=== PATIENT | male | born 1945 | race Caucasian/White ===

== ENCOUNTER 2016-11-20 10:42 | Day surgery (SDC) | payer MEDICARE, OTHER ==
[~2016-11-20] VITALS: Ht 172.7 cm; Wt 85.5 kg
[2016-11-20] VITALS (14 sets, daily range): BP systolic 99–137; BP diastolic 57–73; PULSE 51–63; RESP 14–20; O2SAT 95–99
[2016-11-20] MEDS ORDERED: ASPI-973 PO (11:55)
[2016-11-20] MEDS ORDERED: METO25TA99 PO (11:55)
[2016-11-20 12:34] LABS: BASOPHILS % (AUTO) 0.7 % (0-3); EOSINOPHILS % (AUTO) 0.9 % (0-5); MONOCYTES % (AUTO) 10.9 % (4-12); Mean Corpuscular Hemoglobin 30.7 pg (27.0-35.0); Mean Corpuscular Volume 87.1 fL (81-100); NEUTROPHILS % (AUTO) 60.5 % (40-74); Platelet Count 231 bil/L (150-400)
[2016-11-20 13:09] LABS: Creatine Kinase 62 U/L (21-232)
[2016-11-20] MEDS ORDERED: Heparin 1,000 Units/500 mL NS Premix IV ONE (14:15)
[2016-11-20] MEDS ORDERED: Heparin 5,000 Units/500 mL NS Premix IV ONE (14:15)
[2016-11-20] MEDS ORDERED: fentaNYL-PF 50 mCg/mL 2 mL Inj ONE (14:15)
[2016-11-20] MEDS ORDERED: Nitroglycerin 50,000 mcg/250 mL D5W Premix IV ONE (14:35)
[2016-11-20] MEDS ORDERED: Heparin 1,000 Unit/mL 10 mL Inj ONE (14:35)
--- NOTE | 2016-11-20 15:15 | NUR ---
POST PROCEDURE NOTE RETURNED FROM HARDWARE DESIGN ENGINEER. SEE FLOW SHEET
[2016-11-20] MEDS ORDERED: Ondansetron 2 mg/mL 2 mL Inj IVPUSH PRN (18:45)
[2016-11-20] MEDS ORDERED: Atropine 1 mg/10 mL (Code) Syringe IVPUSH PRN (18:45)
[2016-11-20] MEDS ORDERED: 0.9% Sodium Chloride 400 ML (4 HRS) IV ONE (18:45)
[2016-11-20] MEDS ORDERED: 0.9% Sodium Chloride 250 ML BOLUS IV PRN (18:45)
[2016-11-20] MEDS ORDERED: Sodium Chloride LOK Flush 10 mL Syringe IVFLUSH PRN (18:45)
--- NOTE | 2016-11-20 18:57 | NUR ---
[facility]IES to [facility] Pt arrived at approximately 1840. Right groin has slight oozing of red blood, small dime size bump. No pain on palp. Pt resting. Hourly checks on groin site per ARIES York. Care continues.
--- NOTE | 2016-11-20 19:23 | NUR ---
Late entry/Care assumed/Bleeding/Transfer Care assumed about 1645. When doing bedside check with off going nurse discovered half dollar size track hematoma/ooze. Pressure held and catheter finisher and inspector called. They held pressure and stated would reevaluate. About q30min noted small increase of oozing at skin and dime size lump in track. mineral ore processing labourer held pressure again with no further track lump but with continued scant ooze at skin r/t anticoagulants in case. VSS. Denies site pain. C/O some RODRIGUEZ that is resolving. Report to Samantha Momin RN Transferred to 2027 via bed by staff with family and all belongings in no distress. To continue bedrest until oozing stops with dressing changes prn. Bedside check done.
--- NOTE | 2016-11-20 23:21 | DI95 ---
[address] [address] INTERVENTIONAL CARDIAC CATHETERIZATION PATIENT: EDITA CURRY : 1945 MR#: [id number] ADMIT: 11/20/2016 JOB ID: [id number] DATE OF SERVICE: 11/20/2016 PATIENT PROFILE: The patient is a 71-year-old male who presented with acute coronary syndrome. PROCEDURE: 1. Retrograde left heart catheterization. 2. Selective coronary angiography. 3. Balloon angioplasty and stenting to the circumflex artery. 4. Left ventricular angiogram. VASCULAR CLOSURE DEVICE: Perclose. COMPLICATIONS: None. METHOD: Retrograde left heart catheterization was performed from the right groin under 1% lidocaine local anesthesia using a 6-Samoan sheath. Selective coronary angiogram was performed in multiple projections, including cranial and caudal angulations with hand injected contrast via JL4 and 3DRC catheters. Heparin 100 units/kg and prasugrel 60 mg were given. A 6-Samoan JL4 guide was advanced to the left coronary ostium. A Runthrough wire was placed inside the circumflex artery. The third obtuse marginal branch lesion was pre-dilated with a 1.2 and a 2.0 mm balloon. Theses balloons were also pre-dilated in the mid circumflex artery lesion. A Xience 2.25 x 12 mm stent was placed inside the third obtuse marginal branch lesion and deployed at 8 atmospheres for 20 seconds. A Xience 2.5 x 15 mm stent was placed inside the mid circumflex artery lesion and deployed at 14 atmospheres for 30 seconds. Nitroglycerin 200 mcg was given intracoronary. Final angiogram was obtained. A 5-Samoan angulated pigtail catheter was advanced to the left ventricle and left ventricular angiogram was performed in the 30 degree MARQUEZ view by injecting contrast at the rate of 10 cc/second for 3 seconds. This catheter was withdrawn. Right femoral angiogram was performed. Following sheath removal, hemostasis was achieved by using a Perclose device. The patient tolerated the procedure well. He was transferred to [facility] in good condition. TOTAL CONTRAST USED: 130 cc. FLUORO TIME: 3.6 minutes. TOTAL RADIATION DOSE: 294 millicurie. RESULT: 1. Selective coronary angiogram: a. Left main coronary artery is normal. b. The left anterior descending artery is transapical and has 30% stenosis in the proximal portion with minor calcification, 30% stenosis in the mid portion and 20% stenosis in the distal portion. c. The circumflex artery has 70% stenosis in the mid portion. The first obtuse marginal branch is tiny. The second obtuse marginal branch is also tiny and has 90% stenosis at its origin. This lesion is not amenable to percutaneous coronary intervention. The third obtuse marginal branch has 98% stenosis. d. The dominant right coronary artery has 75% stenosis in the proximal portion and 20% stenosis in the mid portion. 2. Balloon angioplasty and stenting was performed to the mid circumflex artery and third obtuse marginal branch lesions by deploying one drug-eluting stent (2.5 x 15) to the mid circumflex artery and one drug-eluting stent (2.25 x 12) to the third obtuse marginal branch to achieve an excellent angiographic result with KRYSTLE-3 flow distally. 3. Left ventricular angiogram demonstrates normal left ventricular systolic function (LVEF 65%). There is no wall motion abnormality. There is no mitral regurgitation. 4. There is no gradient across the aortic valve on catheter withdrawal. 5. Aortic pressure is 115/58 mmHg. Left ventricular pressure is 112/2 mmHg. 6. Left ventricular end-diastolic pressure is 9 mmHg. CONCLUSION: 1. Critical stenosis of the third obtuse marginal branch and severe stenosis of the mid circumflex artery. These were successfully treated with one drug eluting stent at each location. 2. Severe 75% stenosis in the proximal right coronary artery. 3. Left ventricular ejection fraction 65%. 4. Left ventricular end-diastolic pressure is 9 mmHg. MTDD
[2016-11-21 03:11] VITALS: PULSE 55
[2016-11-21 03:42] VITALS: BP 107/63; PULSE 60; RESP 17; O2SAT 94
[2016-11-21 04:11] LABS: APPEARANCE,URINE CLEAR (CLEAR,HAZY); COLOR,URINE YELLOW (YELLOW); OCCULT BLOOD,URINE NEGATIVE (NEGATIVE); UROBILINOGEN,URINE NORMAL (NORMAL)
[2016-11-21 04:48] LABS: Mean Corpuscular Hemoglobin 30.7 pg (27.0-35.0); Mean Corpuscular Volume 87.3 fL (81-100)
--- NOTE | 2016-11-21 04:54 | NUR ---
Cardiac: Tele Sbrady overnight. VSS. PRN PO Tylenol given for Right shoulder discomfort/ general discomfort from "sleeping in a hospital bed". Pt denies any chest pain/ chest discomfort. Right groin site asymptomatic, old drainage on dressing remains unchanged, no hematoma noted. Distal pulses palpable.
[2016-11-21 08:00] VITALS: PULSE 59
[2016-11-21 08:15] VITALS: BP 114/65; PULSE 59; RESP 16; O2SAT 97
--- NOTE | 2016-11-21 08:28 | NUR ---
Scanner Scanner not working in room 2027 again, avox called, stated call IT. Manually entered ASA and Plavix. Care continues.
[2016-11-21] MEDS ORDERED: ATOR20TA PO (12:03)
[2016-11-21] MEDS ORDERED: CLOP75TA3 PO (12:03)
--- NOTE | 2016-11-21 12:47 | NUR ---
Groin No pain on palp, no hematoma, no bleeding. Care continues.
--- NOTE | 2016-11-21 12:48 | NUR ---
Discharge Patient discharged at approximately 1248 to home with family. Patient given written discharge packet. Educational material on Coronary Artery Disease, Angioplasty/Stent and Angina Booklets, Plavix and Lipitor educational material. Education regarding [email or web address] and Healthy People 2020. Pt new prescriptions sent to [facility], pt confirmed will nut picker and start today. Next dose to be taken clearly written and dated. Pt acknowledged and understood all material. Bilateral IV's DC'd with catheter intact, tele DC'd radiation monitor notified. Pt ambulated and escorted to front door by DANNA.
--- NOTE | 2016-11-21 20:01 | DIS ---
[address] [address] DISCHARGE SUMMARY PATIENT: EDITA CURRY : 1945 MR#: [id number] ADMIT: 11/20/2016 JOB ID: [id number] DIS: 11/21/2016 ADMITTING DIAGNOSIS: Unstable angina. DISCHARGE DIAGNOSIS: Unstable angina. SECONDARY DIAGNOSES: 1. Hypercholesterolemia. 2. Overweight with a BMI of 28.6 kg/m2. 3. History of supraventricular tachycardia. PROCEDURE: 1. Selective coronary angiography. 2. Balloon angioplasty and stenting to the circumflex artery and third obtuse marginal branch. COMPLICATIONS: None. HISTORY: Please see the detail history in the admission H and P by Dr. Brown on November 20, 2016. The patient was in his usual state of health until three months ago when he noticed exertional chest discomfort when he walked up a hill. This has been progressively worse. This has limited his physical activity. He was seen by Dr. Brown in the clinic yesterday. He was having chest discomfort at rest. The patient was then admitted to . HOSPITAL COURSE: Urgent coronary angiogram was performed. It demonstrated critical stenosis of the third obtuse marginal branch of 98%. This was successfully treated with one drug-eluting stent. He also had severe stenosis of the mid circumflex artery. This was treated with one drug-eluting stent. His left ventricular ejection fraction was 65%. LVEDP was 9 mmHg. His hospital course was uneventful. The patient was discharged from the hospital on the following day in good condition. He will return for elective intervention to the proximal right coronary artery next week. Blood tests show cholesterol 171, triglyceride 130, HDL 35, LDL 110. DISCHARGE MEDICATIONS: 1. Aspirin 81 mg daily. 2. Plavix 75 mg daily. 3. Metoprolol succinate 25 mg daily. 4. Atorvastatin 20 mg q.h.s. MTDD
== END 2016-11-21 13:00 | disposition home or self-care (01) ==
LOC: SOUO 10:42 → PCC 18:34 → SOUO 11-21 13:00
PROVIDERS: ATTEND Internal Medicine Interventional Cardiology
DX: I25.110 Atherosclerotic heart disease of native coronary artery with unstable angina pectoris (principal); I47.1 Supraventricular tachycardia; E78.00 Pure hypercholesterolemia, unspecified; Z79.82 Long term (current) use of aspirin; E66.3 Overweight; Z68.28 Body mass index [BMI] 28.0-28.9, adult
CPT/HCPCS: 36415; 80048; 80061; 81000; 82550; 82553; 83036; 84484; 85025; 85027; 85610; 93005; 93458; 99152; 99153; C1725; C1760; C1769; C1874; C1887; C9600; C9601; J1644; J2060; J2250; J3010; J7030; Q9967

== ENCOUNTER 2016-11-24 00:33 | Inpatient (IN) | payer MEDICARE, OTHER ==
[~2016-11-24] VITALS: Ht 172.7 cm; Wt 85.4 kg
[2016-11-24] VITALS (16 sets, daily range): BP systolic 112–139; BP diastolic 61–81; PULSE 51–63; RESP 14–20; O2SAT 95–97
[~2016-11-24 00:33] MED LIST: ASPI-973 PO; ATOR20TA PO; CLOP75TA3 PO; METO25TA99 PO
[2016-11-24] MEDS ORDERED: Heparin Protocol Boluses IVPUSH PRN (02:40)
[2016-11-24] MEDS ORDERED: Heparin 25K Unit/500mL 0.45 NS 25,000 UNIT in IV Premix 1 EACH IV SCH (02:40)
--- NOTE | 2016-11-24 03:13 | NUR ---
admission patient received from [facility]. oriented to room and call thomson. denies chest pain. tele sinus norma high 50's arrived with heparin infusion. called dr sen. placed on heparin cardiac infusion protocol. as per dr sen's order at bedside. med rec completed. care ongoing.
[2016-11-24] MEDS ORDERED: Ondansetron 2 mg/mL 2 mL Inj IVPUSH PRN ×2 (03:15→20:15)
[2016-11-24] MEDS ORDERED: Senna-Docusate 8.6-50 mg Tablet PO PRN (03:15)
[2016-11-24] MEDS ORDERED: Alum-Mag Hydrox-Simeth 30 mL Suspension PO PRN (03:15)
[2016-11-24] MEDS ORDERED: Atropine 1 mg/10 mL (Code) Syringe IVPUSH PRN ×2 (03:15→20:15)
[2016-11-24] MEDS ORDERED: Polyethylene Glycol (PEG) 17 Gm Powder PO PRN (03:15)
[2016-11-24] MEDS: 0.9% Sodium Chloride 1,000 ML IV SCH ×2 (03:51→15:58)
--- NOTE | 2016-11-24 04:10 | PCM.HPMED ---
Subjective Date of Service Nov 24, 2016 Primary Provider: Admitting Physician: Marcus Pham MD Primary Care Physician: Artis Garces MD Attending Physician: Marcus Pham MD Admit Status: Direct Admit (From [facility]) Chief Complaint: Substernal chest pressure with radiation to back History of Present Illness: Mr. Woods is a pleasant 71 year young gentleman with recent history of cardiac catheterization 11/20/2016 secondary to exertional and resting chest discomfort, s/p LIBRADO placement of third obtuse marginal branch and mid- circumflex in addition to 75% stenosis of RCA that was left untreated, that presented to [facility] for recurrent chest pressure with radiation to back. He was admitted for evaluation and treatment for ACS. Hospital day one. Mr. Woods states that he has been remarkably healthy most of his life until the recent weeks when he developed ongoing, persistent chest pressure that was initially only present with uphill exertion, but then expanded to rest. He states that his symptoms were initially intermittent over the recent year, but since the turn of 2016, had become more frequent, which prompted him to seek care at his PCP, Dr. Garces in [place]. He was recommended to follow up with cardiology, Dr. Brown, of whom the patient had an established relationship with based on [facility] patient's prior history of palpitations and tachycardia. Mr. Woods states the symptoms that led to admission included a substernal chest pressure, initially rated 3/10, with radiation to his back; without associated fever, chills, diaphoresis, nausea, vomiting, abdominal pain, shortness of breath, palpitations. Pressure developed at approx 2130, nearly 4 hours after he ingested his dinner, and occurred while at rest enjoying a movie at home. He does endorse a distant history of acid reflux, controlled with behavior modifications of HOB elevation and timed intake > 4 hours prior to bed. No known or identified inciting factors for chest pressure day of admission. He states that the sensation is a pressure, not a pain, and is similar to his previous presenting symptoms of similar, but less severe. He states he has been compliant with medications recommended at discharge from his cardiac cath that was completed 11/20/[address] Farris, and has felt 'great' since the procedure and interventions. Mr. Woods describes himself as relatively healthy; denies any history of tobacco use, admits to wine intake of one glass nightly with dinner, and denies any other substance use. He was not on any chronic medications prior to the regimen prescribed post stent placement, and reports he walks most days of the week, with three days weekly of 5 miles, and the remaining days approximately 3 miles. He states that he was to follow up with Dr. Farris on 11/26/2016 for his remaining critical lesion of his right coronary artery, found to be 75% stenosed on cath completed 11/20. He was transferred from [place] in stable condition. Cardiology recommended heparin gtt, and kindly agree to consult in the morning. Review of Systems: Complete ROS obtained; pertinent positives and negatives as noted in HPI Allergies Coded Allergies: No Known Allergies (Unverified , 11/20/16) PT REPORTS NO DRUG ALLERGIES Home Medications Per discharge summary post cardiac cath 11/20/2016: ASA 81mg daily Plavix 75mg daily Metoprolol succinate 25mg daily Atorvastatin 20mg qhs PMH CAD s/p stent placement third obtuse marginal branch, circumflex Critical stenosis RCA 75%, no current interventions Hypercholesterolemia GERD Surgical History Cardiac cath 11/2016 EGD approx 2010 (pt reports est. 5 years ago)- reported as unremarkable COlonoscopy approx 2010 (pt reports est. 5 years ago)- reports polyps s/p removal with recommended FU 5 years (approaching due date) Family History Denies any family history of early/sudden cardiac Reports multiple members with h/o CVA Social History Hx Alcohol Use: Yes (Occasional glass of wine. None for a week and a half) Hx Substance Use: No Hx Tobacco Use: No Smoking Status: Never Smoker Living Arrangement: with Family ([place]) Exam Vital Signs Vital Sign - Last Date Time Temp Pulse Resp B/P Pulse Ox O2 Delivery O2 Flow Rate FiO2 11/24/16 02:52 36.8 56 16 139/81 97 Room Air Exam General: AAOx3; no acute distress HEENT: Atraumatic; sclera anicteric; mucus membranes moist Cardiac: Regular rate and rhythm; no murmurs appreciated Respiratory: Adequate air flow all olsen; no wheeze Abdomen: Soft, nontender, nondistended Extremities: No edema MSK: 5/5 strength all 4 extremities; no assistance needed with transfers or ambulation Skin: Warm and dry Neuro: CNII-XII grossly intact; speech without slur; facial expression symmetric Psych: Appropriate mood, affect, and responses to questioning Assessment & Plan Mr. Woods is a pleasant 71 year young gentleman with recent history of cardiac catheterization secondary to exertional and resting chest discomfort, s/ p LIBRADO placement of third obtuse marginal branch and mid-circumflex in addition to 75% stenosis of RCA that was left untreated, that presented to [facility] for recurrent chest pressure with radiation to back. He was admitted for evaluation and treatment for ACS. Hospital day one. Suspected NSTEMI/ACS, acute, present on admission. Ongoing - Recent cath 11/20/2016: LIBRADO x2 to third obtuse marginal branch, circumflex; 75 % stenosis RCA without intervention - Plan was for RCA intervention 11/26/2016 - EKG daily - Tele - Cardiac heparin gtt protocol in place - Cardiology consulted, initially at [place]; kindly agree to follow; consult placed - Troponin trend - Morphine/nitro/EKG prn chest pain/pressure - AM labs to eval electrolytes and thyroid - Monitor s/sx Hypercholesterolemia, chronic. Presumed stable - Recent lipid panel 11/2016: total chol 171, LDL 110, HDL 35, TG 130 - Resume statin - PRN: pain/antiemetic/fever/bowel - DVT: Cardiac hep gtt - GI: H2B - Diet: NPO at this time - Codew: FULL CODE Patient Status: Due to severity of presenting symptoms, risk of adverse events, and likely course of care, anticipated LOS > 2 midnights; admitted as INPT Pain Evaluation: Adequate Pain Control GI Prophylaxis: H2 aris VTE Prophylaxis: Other (cardiac heparin gtt) Resuscitation Status: CPR: Attempt Resuscitation Attending Statement The patient was seen and examined together with Dr. Day on 11/24 and I agree with the history, exam and plan as outlined in the note above. Julee Day DO Nov 24, 2016 04:10 Marcus Pham MD Nov 24, 2016 05:34
[2016-11-24 04:11] LABS: APPEARANCE,URINE CLEAR (CLEAR,HAZY); COLOR,URINE STRAW (YELLOW); OCCULT BLOOD,URINE NEGATIVE (NEGATIVE); UROBILINOGEN,URINE NORMAL (NORMAL)
[2016-11-24 04:47] LABS: BASOPHILS % (AUTO) 0.4 % (0-3); EOSINOPHILS % (AUTO) 1.5 % (0-5); Mean Corpuscular Hemoglobin 31.3 pg (27.0-35.0); Mean Corpuscular Volume 87.7 fL (81-100); NEUTROPHILS % (AUTO) 64.1 % (40-74); Platelet Count 231 bil/L (150-400)
[2016-11-24 05:21] LABS: TROPONIN T 0.01 ug/L (0.0-0.011)
[2016-11-24 05:53] LABS: Magnesium 2.1 mg/dL (1.6-2.6); Phosphorus 3.7 mg/dL (2.5-4.9)
[2016-11-24] MEDS: MeTOProlol XL 25 mg ER24 Tablet PO SCH (09:33)
[2016-11-24] MEDS: Sodium Chloride LOK Flush 10 mL Syringe IVFLUSH SCH ×2 (09:34→16:30)
--- NOTE | 2016-11-24 10:06 | NUR ---
Social Work: initial Assessment Data & Assessment: See Initial Assessment. EMR reviewed. Patient is a 71 y/o male that admitted on 11/24/16 for chest pain resolved per H&P. fountain worker met with patient to complete initial assessment, discuss discharge planning, and SW role explained. Patient is alert and oriented x 3. Patient confirmed that his PCP is Dr. Artis Garces and his insurance is Medicare and [employer]. Patient does have VA benefit, but is not sure of his percentage of service connection. Patient has no LTC benefits. Patient does have an Advance Directive and SW requested a copy. Patient lives in a one story home with his where he is independent at baseline. Patient has no steps to enter his home. Patient has no DME and no HH or SNF history. Pt's family to provide transport home at discharge. SW provided phone number and plan on white board in room. SW will continue to follow. Plan: Pt to likely discharge home no needs. Pt's family is supportive. SW will continue to follow. Libia Bush LMSW, BOGDAN Addendum: 11/24/16 at 1014 by LIBIA LAGOS Amended: Links added.
--- NOTE | 2016-11-24 10:34 | CONS ---
[address] [address] CONSULTATION REPORT PATIENT: EDITA CURRY : 1945 MR#: [id number] ADMIT: 11/24/2016 JOB ID: [id number] DATE OF SERVICE: 11/24/2016 REQUESTED BY: Dr. Pham REASON FOR EVALUATION: Chest discomfort. HISTORY OF PRESENT ILLNESS: The patient is a 71 years old male with history of overweight, hypercholesterolemia, and supraventricular tachycardia. His regular fuel tank sealer and tester is Dr. Brown. The patient experienced exertional chest discomfort when he walked up a hill for the past 3 months. It has been progressively worse. He underwent urgent coronary angiogram on November 20, 2016 and had stent placement to the mid circumflex artery and 3rd obtuse marginal branch. He was schedule to undergo interventional procedure to the proximal right coronary artery on November 26, 2016. He felt really good when he left the hospital on November 21, 2016. Yesterday evening he was doing well when he watched movie around 8:30 p.m. Then around 9:30 p.m. he developed pressure in his chest, which he rated about 2-3/10. It radiated to his back. He did not feel well and anxious. There was no associated symptoms such as nausea, shortness of breath, or diaphoresis. He went to [facility] before transfer to [facility]. He was treated with nitroglycerin and IV heparin. His chest discomfort disappeared after 2 nitroglycerin. PAST MEDICAL HISTORY: 1. Coronary artery disease, status post drug-eluting stent placement to the 3rd obtuse marginal branch and mid circumflex artery. 2. Hypercholesterolemia. 3. GERD. CURRENT MEDICATIONS: 1. Aspirin 81 mg daily. 2. Plavix 75 mg daily. 3. Metoprolol succinate 25 mg daily. 4. Atorvastatin 20 mg at bedtime. ALLERGIES: No known allergies. SOCIAL HISTORY: The patient has never smoked. He lives with his in [place]. FAMILY HISTORY: No history of premature coronary artery disease. REVIEW OF SYSTEMS: All 10 systems are reviewed and not significantly changed from previous review by Dr. Julee Day. PHYSICAL EXAMINATION: Reveals an overweight male appearing in no acute distress. Temperature is 36.4. Blood pressure is 129/78. Pulse 63. Body weight is 86.5 kg. Head and face have normal configuration. Anicteric sclerae. Moist mucosa. Neck supple. No jugular venous distention or carotid bruits. Chest normal expansion. Lungs are clear to auscultation. The 1st and 2nd heart sounds are normal, no gallop or murmur. Abdomen soft, nontender without hepatosplenomegaly. Back: No CVA tenderness. Extremities: No clubbing, cyanosis, or edema. Peripheral pulses are equal bilaterally. Neurologic grossly intact. DIAGNOSTIC STUDIES: EKG showed normal sinus rhythm rate 57. Normal EKG. Blood tests show hemoglobin 15.0, WBC 7.5, platelets 231. Sodium 140. Potassium 4.3, chloride 106, bicarb 17, BUN 21, creatinine 0.91. Glucose 116. Troponin T is 0.01. IMPRESSIONS: 1. Chest discomfort of uncertain etiology. 2. Known 75% proximal right coronary artery stenosis. 3. Status post stent placement to the mid circumflex and 3rd obtuse marginal branch on November 20, 2016. 4. Overweight with BMI of 28.6 kg/m2. 5. Hypercholesterolemia. 6. History of supraventricular tachycardia. PLAN: The patient will continue on his current medications and IV heparin. I will arrange for the patient to undergo stent placement to the right coronary artery today. I believe that anxiety plays a role in his chest discomfort. EMEKA
[2016-11-24] MEDS ORDERED: Heparin 1,000 Units/500 mL NS Premix IV ONE (16:13)
[2016-11-24] MEDS ORDERED: Heparin 1,000 Unit/mL 10 mL Inj ONE (16:13)
[2016-11-24] MEDS ORDERED: Heparin 5,000 Units/500 mL NS Premix IV ONE (16:13)
[2016-11-24] MEDS ORDERED: Nitroglycerin 50,000 mcg/250 mL D5W Premix IV ONE (16:13)
[2016-11-24] MEDS ORDERED: 0.9% Sodium Chloride 1,000 ML ONE (16:14)
[2016-11-24] MEDS ORDERED: Atropine 1 mg/10 mL (Code) Syringe ONE (16:21)
[2016-11-24] MEDS ORDERED: fentaNYL-PF 50 mCg/mL 2 mL Inj ONE (16:45)
[2016-11-24] MEDS ORDERED: Sodium Chloride LOK Flush 10 mL Syringe IVFLUSH PRN (20:15)
[2016-11-24] MEDS ORDERED: 0.9% Sodium Chloride 400 ML (4 HRS) IV ONE (20:15)
[2016-11-24] MEDS ORDERED: 0.9% Sodium Chloride 250 ML BOLUS IV PRN (20:15)
--- NOTE | 2016-11-24 20:25 | NUR ---
Pt transferred to [facility] room 2026. Pt's VSS, Lt groin site with small ooze, no hematoma noted. report and Pt handoff given to Mary BURGER.
--- NOTE | 2016-11-24 20:43 | NUR ---
parking lot laborer Pt left for lab tech around 1600. 2 IV sites were maintained. Pt voided prior to leaving. IVs were saline locked. Pt was in no pain and was not feeling any anxiety.
--- NOTE | 2016-11-24 23:21 | DI95 ---
[address] [address] INTERVENTIONAL CARDIAC CATHETERIZATION PATIENT: EDITA CURRY : 1945 MR#: [id number] ADMIT: 11/24/2016 JOB ID: [id number] DATE OF PROCEDURE: 11/24/2016 PATIENT PROFILE: The patient is a 71 years old male who initially presented with accelerated angina and underwent urgent stent placement to the mid circumflex artery and third obtuse marginal branch on November 20, 2016. The patient felt better initially. However, he developed chest discomfort yesterday evening. PROCEDURE: 1. Selective coronary angiography. 2. Balloon angioplasty and stenting to the proximal right coronary artery. VASCULAR CLOSURE DEVICE: Perclose. COMPLICATIONS: None. METHOD: Vascular access was obtained from the left groin under 1% lidocaine local anesthesia using a 6-East Timorese sheath. A 6-East [place]orese 3DRC guide was advanced to the right coronary ostium. A Runthrough wire was placed inside the right coronary artery. The lesion was pre-dilated with a 2.0 x 12 mm balloon. A Xience 2.5 x 15 mm stent was placed inside the proximal right coronary artery lesion and deployed at 15 atmospheres for 30 seconds. Final angiogram was obtained. A 6-East Timorese FL4 catheter was then used for selective left coronary angiogram. This was performed in multiple projections. Left femoral angiogram was performed before sheath removal. Hemostasis was achieved by using a Perclose device. The patient tolerated procedure well. He was transferred to the [facility] in good condition. TOTAL CONTRAST USED: 45 cc. FLUOROSCOPY TIME: 2 minutes. TOTAL RADIATION DOSE: 95 mGy. RESULTS: 1. The previous stents in the mid circumflex artery and third obtuse marginal branch remain widely patent. 2. Successful balloon angioplasty and stenting to the tight culprit proximal right coronary artery lesion by deploying one drug-eluting stent (2.5 x 15 mm) to achieve an excellent angiographic result with KRYSTLE-3 flow distally. EMEKA
[2016-11-25] MEDS: Sodium Chloride LOK Flush 10 mL Syringe IVFLUSH SCH ×2 (00:30→08:28)
[2016-11-25 03:25] VITALS: BP 126/68; PULSE 60; RESP 16; O2SAT 96
[2016-11-25 03:58] LABS: Mean Corpuscular Hemoglobin 30.3 pg (27.0-35.0); Mean Corpuscular Volume 88.4 fL (81-100)
[2016-11-25] MEDS: 0.9% Sodium Chloride 1,000 ML IV SCH (04:11)
--- NOTE | 2016-11-25 06:23 | NUR ---
Groin site Pt groin site oozing upon return to floor from [facility]. Dressing changed and 5lbs sandbag applied. Upon reassessment pt dressing saturated again with blood and oozing out the sides. Femstop applied and phone representative notified. MD stated to leave pt on bedrest for the night and gradually decrease femstop pressure. Femstop applied for approximately 4 hours and oozing has stopped, no further drainage noted on dressing. Distal pulses remained notable and site is soft non tender and no hematoma noted. VSS and Tele SB 50's.
[2016-11-25] MEDS: MeTOProlol XL 25 mg ER24 Tablet PO SCH (08:30)
--- NOTE | 2016-11-25 10:24 | PCM.DIMED ---
Marielos Marrero DO 11/25/16 1024: Discharge Instructions Date of Service Nov 25, 2016 Dates of Hospitalization Nov 24, 2016 at 02:11 Discharge Diagnosis Discharge Diagnosis 1.NSTEMI/ACS, acute, present on admission. Resolved 2.Hypercholesterolemia, chronic. Stable 3.Overweight adult, BMI 28.6 kg/m2, present on admission. Stable Medication Instructions 1. Please continue aspirin, 81 mg daily, plavix, 75 mg daily, atorvastatin, 20 mg daily at bedtime. 2. Please take 1/2 of your metoprolol, 12.5 mg daily due to experienced side effects. 3. We are sending you home with prescription for nitroglycerine for chest.Please take it as prescribed as needed. Diet Heart Healthy Activity Limited until seen by PCP Call your provider Fever or Chills, Shortness of breath, Bleeding, Chest pain, Vomitting, Excessive diarrhea, Weakness (unilateral) Patient Instructions Follow-up plan Please follow up with cardiology in 1 month. Follow-up Provider: Artis Garces MD Follow-up with PCP in: 2 weeks Cardiac Rehab: 1 week (You will receive a phone call from cardiology office with date and time of your appointment) Aiden Emmanuel MD 11/26/16 0723: Discharge Instructions Attending's Statement The patient was seen and examined together with Dr. Marrero on 11/25/2016 and I agree with the history, exam and plan as outlined in the note above. . Marielos Marrero DO Nov 25, 2016 10:24 Aiden Emmanuel MD Nov 26, 2016 07:23
--- NOTE | 2016-11-25 10:24 | PROG NOTE ---
[address] [address] PROGRESS NOTE PATIENT: EDITA CURRY : 1945 MR#: [id number] ADMIT: 11/24/2016 JOB ID: [id number] DATE: 11/25/2016 CHIEF COMPLAINT: Chest pain. SUBJECTIVE: The patient underwent percutaneous coronary intervention to the right coronary artery yesterday. The procedure was uncomplicated. Drug-eluting stent was deployed with excellent angiographic result. He has no groin pain. He has some mild low back pain from lying flat on his back after the procedure. He also reports fatigue on Toprol-XL, and desires to reduce the medication dose. PHYSICAL EXAMINATION: Vital signs: Temperature 36.5, blood pressure 126/68, pulse 50-60 beats per minute on telemetry, no events. Satting 96% on room air. Well-nourished man, no apparent distress. Eyes: No scleral icterus. Neck is supple. No carotid bruits. Heart normal S1, S2. No murmurs. Lungs: Clear to auscultation anteriorly. Abdomen is soft, positive bowel sounds. No hepatosplenomegaly. Extremities warm well perfused. No clubbing, cyanosis, edema. Skin: No rashes or lesions. Left common femoral artery vascular access site is clean, dry and intact. There is no bruit or hematoma. LABORATORIES: Reviewed. His CBC is stable. Basic metabolic panel is stable. No events on telemetry. Angiogram is reviewed. ASSESSMENT AND PLAN: A 71-year-old man with coronary artery disease, status post multivessel percutaneous coronary intervention (PCI). He originally had PCI to the circumflex on November 20, and then came in with crescendo angina November 24, and had PCI to proximal right coronary artery. PLAN: Dual antiplatelet therapy at least for six months. Enroll in cardiac rehab. Continue Lipitor 20 mg daily. Reduce Toprol-XL from 25 mg daily to 12.5 mg daily due to sinus bradycardia. We will also call in nitroglycerin as needed for chest discomfort. The patient will be enrolled in cardiac rehab and will follow up with Dr. De Souza in about a month. Thank you very much for the opportunity to evaluate.
--- NOTE | 2016-11-25 11:47 | NUR ---
Discharge Patient's IVs were removed as well as telemetry leads. Patient and family were educated on medications for home and demonstrated an understanding of what was being taught. Prescription for nitroglycerin was given. Pt signed form stating we went over all of this information together. Pt left the facility at 1150 with family by his side.
--- NOTE | 2016-11-25 14:02 | PCM.DC.MED ---
Discharge Summary Date of Service Nov 25, 2016 Dates of Hospitalization Date of Hospital Admission Nov 24, 2016 at 02:11 Date of Discharge: Nov 25, 2016 Providers: Admitting Physician: Marcus Pham MD Primary Care Physician: Artis Garces MD Attending Physician: Marcus Pham MD Diagnosis at Time of Discharge Diagnosis at Time of Discharge 1.NSTEMI/ACS, acute, present on admission, status post PCI to proximal right coronary artery. 2.Hypercholesterolemia, chronic. Stable 3.Overweight adult, BMI 28.6 kg/m2, present on admission. Stable Consultations Cardiology, Dr. De Souza Brief History Per Admitting Physician: Marcus Pham MD: Mr. Woods is a pleasant 71 year young gentleman with recent history of cardiac catheterization 11/20/2016 secondary to exertional and resting chest discomfort, s/p LIBRADO placement of third obtuse marginal branch and mid- circumflex in addition to 75% stenosis of RCA that was left untreated, that presented to [facility] for recurrent chest pressure with radiation to back. He was admitted for evaluation and treatment for ACS. Hospital day one. Mr. Woods states that he has been remarkably healthy most of his life until the recent weeks when he developed ongoing, persistent chest pressure that was initially only present with uphill exertion, but then expanded to rest. He states that his symptoms were initially intermittent over the recent year, but since the turn of 2016, had become more frequent, which prompted him to seek care at his PCP, Dr. Garces in [place]. He was recommended to follow up with cardiology, Dr. Brown, of whom the patient had an established relationship with based on [facility] patient's prior history of palpitations and tachycardia. Mr. Woods states the symptoms that led to admission included a substernal chest pressure, initially rated 3/10, with radiation to his back; without associated fever, chills, diaphoresis, nausea, vomiting, abdominal pain, shortness of breath, palpitations. Pressure developed at approx 2130, nearly 4 hours after he ingested his dinner, and occurred while at rest enjoying a movie at home. He does endorse a distant history of acid reflux, controlled with behavior modifications of HOB elevation and timed intake > 4 hours prior to bed. No known or identified inciting factors for chest pressure day of admission. He states that the sensation is a pressure, not a pain, and is similar to his previous presenting symptoms of similar, but less severe. He states he has been compliant with medications recommended at discharge from his cardiac cath that was completed 11/20/[address] Farris, and has felt 'great' since the procedure and interventions. Mr. Woods describes himself as relatively healthy; denies any history of tobacco use, admits to wine intake of one glass nightly with dinner, and denies any other substance use. He was not on any chronic medications prior to the regimen prescribed post stent placement, and reports he walks most days of the week, with three days weekly of 5 miles, and the remaining days approximately 3 miles. He states that he was to follow up with Dr. Farris on 11/26/2016 for his remaining critical lesion of his right coronary artery, found to be 75% stenosed on cath completed 11/20. He was transferred from [facility] in stable condition. Cardiology recommended heparin gtt, and kindly agree to consult in the morning. Hospital Course Mr. Woods is a pleasant 71 year young gentleman with recent history of cardiac catheterization secondary to exertional and resting chest discomfort, status post drug eluting stent placement of third obtuse marginal branch and mid -circumflex in addition to 75% stenosis of right coronary artery that was left untreated, that presented to [facility] via [facility] for recurrent chest pressure with radiation to back. He was admitted for evaluation and treatment for acute coronary syndrome. The patient underwent percutaneous coronary intervention to the right coronary artery on . The procedure was uncomplicated. Drug-eluting stent was deployed with excellent angiographic result. Patient was discharged home in a stable condition on a dual antiplatelet therapy at least for six months. He will be enrolled in a cardiac rehabilitation. He will continue aspirin, 81 mg daily, atorvastatin, 20 mg daily and metoprolol reduced from 25 mg to 12.5 mg daily due to sinus bradycardia and reported fatigue and low energy level from medication. He will have a prescription for nitroglycerin for chest discomfort as needed. Patient will follow up with Dr. Garces, primary care provider within two weeks and Dr. De Souza, cardiology in one month. Exam Vital Signs (Last) Date Time Temp Pulse Resp B/P Pulse Ox O2 Delivery O2 Flow Rate FiO2 11/25/16 03:25 36.5 60 16 126/68 96 Room Air Exam General: Alert and oriented x3; no acute distress HEENT: Atraumatic; sclera anicteric; mucus membranes moist Cardiac: Regular rate and rhythm; no murmurs appreciated Respiratory: Adequate air flow all olsen; no wheeze Abdomen: Soft, nontender, nondistended Extremities: No edema MSK: 5/5 strength all 4 extremities; no assistance needed with transfers or ambulation Skin: Warm and dry, left groin site without hematoma Neuro: CNII-XII grossly intact; speech without slur; facial expression symmetric Psych: Appropriate mood, affect, and responses to questioning Test 11/24/16 03:48 11/24/16 04:25 11/24/16 12:10 11/24/16 13:00 Urine Color Straw (YELLOW) Urine Appearance Clear (CLEAR,HAZY) Urine pH 6.0 (5.0-8.0) Urine Specific [place] 1.005 (1.003-1.035) Urine Protein Negativemg/dL (NEG,TRACE) Urine Glucose (UA) Negativemg/dL (NEGATIVE) Urine Ketones Negativemg/dL (NEGATIVE) Urine Occult Blood Negative (NEGATIVE) Urine Nitrite Negative (NEGATIVE) Urine Bilirubin Negative (NEGATIVE) Urine Urobilinogen Normalmg/dL (NORMAL) Urine Leukocyte Esterase Negative (NEGATIVE) Urine RBC 0-2/hpf (0-2) Urine WBC 0-5/hpf (0-5) Urine Epithelial Cells Occasional/hpf (NONE-MOD) Urine Crystals None seen (NONE SEEN) Urine Bacteria None/hpf (NONE-FEW) Urine Hyaline Casts None/lpf (NONE) Urine Granular Casts None seen (NONE SEEN) Urine Waxy Casts None seen (NONE SEEN) Urine Red Blood Cell Casts None seen (NONE SEEN) Urine White Blood Cell Casts None seen (NONE SEEN) Urine Mucus None seen (None Seen) Urine Trichomonas None seen (NONE SEEN) Urine Yeast None (NONE SEEN) Urinalysis Comment None Urine Culture Reflexed Not indicated Hold Urine Received (Received) Neutrophils (%) (Auto) 64.1% (40-74) Lymphocytes (%) (Auto) 25.6% (14-46) Monocytes (%) (Auto) 8.0% (4-12) Eosinophils (%) (Auto) 1.5% (0-5) Basophils (%) (Auto) 0.4% (0-3) Phosphorus Level 3.7mg/dL (2.5-4.9) Magnesium Level 2.1mg/dL (1.6-2.6) Total Bilirubin 0.9mg/dL (0.0-1.2) Aspartate Amino Transf (AST/SGOT) 18U/L (0-50) Alanine Aminotransferase (ALT/SGPT) 16U/L (0-44) Alkaline Phosphatase 46U/L (25-160) Total Protein 6.3g/dL (6.4-8.4) Albumin 3.7g/dL (3.4-5.0) Thyroid Stimulating Hormone (TSH) 2.880uIU/mL (0.450-4.500) Free Thyroxine 1.42ng/dL (0.82-1.77) Activated Partial Thromboplast Time 64.8sec (22.8-33.0) Troponin T < 0.010ug/L (0.0-0.011) Test 11/25/16 03:45 White Blood Count 6.8th/mm3 (3.8-10.1) Red Blood Count 4.65mil/mm3 (4.40-5.80) Hemoglobin 14.1g/dL (13.8-17.2) Hematocrit 41.1% (41.0-50.0) Mean Corpuscular Volume 88.4fL (81-100) Mean Corpuscular Hemoglobin 30.3pg (27.0-35.0) Mean Corpuscular Hemoglobin Concent 34.3% (32.0-37.0) Red Cell Distribution Width 12.2% (12.3-15.4) Platelet Count 222bil/L (150-400) Sodium Level 138mEq/L (134-144) Potassium Level 4.1mEq/L (3.5-5.2) Chloride Level 108mEq/L (97-108) Carbon Dioxide Level 16mmol/L (18-29) Blood Urea Nitrogen 18mg/dL (8-27) Creatinine 0.90mg/dL (0.76-1.27) Estimat Glomerular Filtration Rate 88mL/min (>59) Glucose Level 120mg/dL (60-99) Calcium Level 9.0mg/dL (8.5-10.1) Discharge Medications Discharge Medications Aspirin (Aspirin) 81 Mg Tablet 81 MG PO DAILY (Reported) Atorvastatin (Lipitor) 20 Mg Tablet 20 MG PO DAILY (Reported) Clopidogrel Bisulfate (Plavix) 75 Mg Tablet 75 MG PO DAILY (Reported) Metoprolol Succinate ER (Metoprolol Succinate ER) 25 Mg Tab.er.24h 25 MG PO DAILY (Reported) Additional med instructions 1. Please continue aspirin, 81 mg daily, plavix, 75 mg daily, atorvastatin, 20 mg daily at bedtime. 2. Please take 1/2 of your metoprolol, 12.5 mg daily due to experienced side effects. 3. We are sending you home with prescription for nitroglycerine for chest.Please take it as prescribed as needed. Followup Plan Follow-up plan Please follow up with cardiology in 1 month. Discharge Diet: Heart Healthy Discharge Activity: Limited until seen by PCP Follow-up Provider: Artis Garces MD Follow-up with PCP in: 2 weeks Cardiac Rehab: 1 week (You will receive a phone call from cardiology office with date and time of your appointment) Time spent Greater than 30 minutes was spent in preparation of discharge with greater than 50% of that time dedicated to patient counseling and coordination of care. . Attending Statement The patient was seen and examined together with Dr. Marrero on 11/25/2016 and I agree with the history, exam and plan as outlined in the note above. . copies to: Artis Garces MD, Oksana S DO Nov 25, 2016 10:47 Aiden Emmanuel MD Nov 26, 2016 07:24
== END 2016-11-25 11:50 | disposition home or self-care (01) | DRG 247 ==
LOC: PCC 02:11
PROVIDERS: ADMIT Hospitalist; ATTEND Hospitalist
PROC: 027034Z Dilation of Coronary Artery, One Artery with Drug-eluting Intraluminal Device, Percutaneous Approach (ICD-10-PCS; principal; 2016-11-24)
PROC: B211YZZ Fluoroscopy of Multiple Coronary Arteries using Other Contrast (ICD-10-PCS; 2016-11-24)
DX: I21.4 Non-ST elevation (NSTEMI) myocardial infarction (principal); Z95.5 Presence of coronary angioplasty implant and graft; Z79.82 Long term (current) use of aspirin; E78.00 Pure hypercholesterolemia, unspecified; Z79.02 Long term (current) use of antithrombotics/antiplatelets; E66.3 Overweight; I24.9 Acute ischemic heart disease, unspecified; Z68.28 Body mass index [BMI] 28.0-28.9, adult